=== PATIENT | female | born 1985 | race Two or more races ===

== ENCOUNTER 2023-04-16 10:27 | Emergency (ER) | payer MEDICAID ==
[~2023-04-16] VITALS: Ht 157.5 cm; Wt 118.0 kg
[2023-04-16 10:40] VITALS: BP 133/83; PULSE 79; RESP 16; TEMP 97.8; O2SAT 99
[2023-04-16] MEDS ORDERED: KETOROLAC TROMETH 30 MG/ML 1ML VIAL IM ONE (14:30)
[2023-04-16] MEDS ORDERED: IBUP-1454 PO (15:28)
== END 2023-04-16 15:43 | disposition home or self-care (01) ==
LOC: ER 10:27
DX: M76.62 Achilles tendinitis, left leg (principal); Z79.1 Long term (current) use of non-steroidal anti-inflammatories (NSAID)
CPT/HCPCS: 96372; 99283; J1885